=== PATIENT | male | born 1960 | race Caucasian/White ===

== ENCOUNTER 2016-08-22 06:02 | Outpatient (CLI) | payer MEDICARE ==
[~2016-08-22] VITALS: Ht 170.2 cm; Wt 80.3 kg
[~2016-08-22 06:02] MED LIST: ASPI-875 PO; BUTA-234 PO; DIPH25TA82 PO; HYDR-2890 PO; RABE20TA PO; TIZA4TAB55 PO
--- OUTSIDE RECORDS SUMMARY | 2016-08-22 06:05 | XMS REPORT ---
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
[2016-08-22] MEDS ORDERED: METO50TA2 PO (15:39)
[2016-08-22] MEDS ORDERED: TRIA1TAB3 PO (15:39)
[2016-08-22] MEDS ORDERED: CYCL10TA9 PO (15:39)
[2016-08-22] MEDS ORDERED: FAMO20TA3 PO (15:39)
== END 2016-08-22 15:42 ==
LOC: PREOP 06:02
PROVIDERS: ATTEND Surgery
DX: Z01.818 Encounter for other preprocedural examination (principal); R19.5 Other fecal abnormalities

== ENCOUNTER 2016-08-28 06:14 | Day surgery (SDC) | payer MEDICARE ==
[~2016-08-28] VITALS: Ht 170.2 cm; Wt 80.3 kg
[~2016-08-28 06:14] MED LIST changes: +CYCL10TA9 PO; +FAMO20TA3 PO; +METO50TA2 PO; +TRIA1TAB3 PO
[2016-08-28] MEDS ORDERED: NS IV 1000 ML 1,000 ML IV STA (07:05)
[2016-08-28] MEDS ORDERED: NS IV 1000 ML 1,000 ML ONE (07:07)
[2016-08-28] MEDS ORDERED: HURRICAINE EXT TUBE (BENZOCAINE) XX PRN (07:15)
[2016-08-28] MEDS ORDERED: PROPOFOL INJECTION 50 ML IV ONE (07:21)
[2016-08-28] MEDS ORDERED: MIDAZOLAM 2 MG/2 ML (VERSED) VIAL ONE (07:22)
[2016-08-28 07:29] VITALS: BP 140/95
--- NOTE | 2016-08-28 07:34 | Progress Note-Pre Operative ---
Pre-Operative Progress Note H&P Reviewed The H&P was reviewed, patient examined and no changes noted. Date H&P Reviewed: Aug 28, 2016 Time H&P Reviewed: 07:33 Pre-Operative Diagnosis: GERD, family history colon cancer, black stools MAIRA PHILIP DO Aug 28, 2016 7:34 am
[2016-08-28] MEDS ORDERED: HURRICAINE EXT TUBE (BENZOCAINE) ONE (07:36)
[2016-08-28 08:35] VITALS: BP 131/86
--- NOTE | 2016-08-28 08:39 | Progress Note-Post Operative ---
Post-Operative Progess Note Pre-Operative Diagnosis GERD, family history colon cancer, black stools Post-Operative Diagnosis small h/h, reflux esophagitis colon polyps Post-Op Procedure Note Date of Procedure: Aug 28, 2016 Name of Procedure: egd c biopsy ge junction colonoscopy with hot bx polypectomy x 5 Procedure Note/Findings see note Anesthesia Type per communications designer Estimated blood loss (mL): none Specimen(s) collected ge junction, cecal, descending, sigmoid, rectum x 2 MAIRA PHILIP DO Aug 28, 2016 8:39 am
[2016-08-28] MEDS ORDERED: OMEP20TA7 PO (08:41)
--- NOTE | 2016-08-28 08:41 | Discharge Inst-Simple/Standard ---
Discharge Inst-Standard Patient Instructions/Follow Up Plan of Care/Instructions/FU: 2 weeks Carol Repeat colonoscopy in 3 years. Activity as Tolerated: Yes Discharge Diet: Regular Diet MAIRA PHILIP DO Aug 28, 2016 8:41 am
[2016-08-28 09:00] VITALS: BP 143/90
[2016-08-28 09:19] VITALS: BP 143/90
--- NOTE | 2016-08-28 11:55 | PROCEDURE REPORT ---
PROCEDURE PHYSICIAN: MAIRA PHILIP DATE OF PROCEDURE: 08/28/2016 PREOPERATIVE DIAGNOSIS: 1. GERD. 2. Family history of colon cancer. 3. Black stools. POSTOPERATIVE DIAGNOSES: 1. Small hiatal hernia. 2. Reflux esophagitis. 3. Colon polyps. PROCEDURE: 1. EGD with biopsy at GE junction. 2. Colonoscopy with hot biopsy polypectomy x 5 SURGEON: Carol. ANESTHESIA: Per SENIOR JAVA SOFTWARE ENGINEER. COMPLICATIONS: None. INDICATIONS: The patient is a 56-year-old male with GERD, family history of colon cancer and black stools. He was recommended to have EGD and colonoscopy for further evaluation. He understands the risk and benefits of the procedure and wished to proceed with procedure. Consent was signed on the chart. PROCEDURE: The patient was taken to the endoscopy suite, placed in left lateral recumbent position. Timeout was performed. The scope was inserted in the mouth down the esophagus, stomach and into the duodenum without difficulty. There were no polyps, masses, ulcerations within the duodenum. The scope was then slowly retracted back to the stomach where it was further insufflated. There were no polyps, masses, ulcerations or erythematous changes. The scope was then retroflexed noting a small hiatal hernia. No other pathology noted. The scope was returned to its normal position slowly withdrawn. At the GE junction, there is some slight erythematous changes consistent with reflux esophagitis. Biopsy of GE junction was obtained. The scope was slowly retracted back until completely removed noting no other pathology. COLONOSCOPY: Digital rectal exam was then performed. There were no palpable polyps, masses or ulcerations. The scope inserted in the rectum and advanced all of the way to the cecum with minimal difficulty. Prep was adequate. The scope was then slowly retracted back. Within the cecum, a small polyp was present which hot biopsy polypectomy was performed. The scope was continued be slowly retracted back. There were no polyps, masses, ulcerations within the ascending colon, transverse colon. In the descending colon there is a small polyp, which hot biopsy polypectomy was performed. The scope was continued be slowly retracted back into the sigmoid colon; another polyp was present which hot biopsy polypectomy was performed. The scope was continued to be retracted back into the rectum, where there was 2 polyps, which hot biopsy polypectomy was performed. The scope was also retroflexed noting no further pathology. The scope was then returned to its normal position slowly withdrawn until completely removed. The patient tolerated the procedure well without any complications. He was taken to recovery in stable condition. RECOMMENDATIONS: The patient was started on omeprazole and he will need to follow-up 2 weeks to follow-up on pathology results. The patient will need repeat colonoscopy in 3 years unless he has any changes prior to that he should be reevaluated at that time. Should he have any problems prior to 3 years, he should be reevaluated at that time. Job ID: [id number] Dictated Date: 08/28/2016 08:45:10 Banquet Waiter/Waitress Date: 08/28/2016 11:46:43 / allegra
== END 2016-08-28 09:05 | disposition home or self-care (01) ==
LOC: ENDO 06:14
PROVIDERS: ATTEND Surgery
DX: D12.0 Benign neoplasm of cecum (principal); D12.4 Benign neoplasm of descending colon; K63.5 Polyp of colon; R19.5 Other fecal abnormalities; K21.0 Gastro-esophageal reflux disease with esophagitis; K44.9 Diaphragmatic hernia without obstruction or gangrene; Z80.0 Family history of malignant neoplasm of digestive organs
CPT/HCPCS: 88305

== ENCOUNTER → 2020-06-27 | Outpatient (CLI) | payer MEDICARE ==
[~2020-06-27] MED LIST changes: +METO50TA15 PO; -METO50TA2 PO; +OMEP20TA7 PO
--- NOTE | 2020-06-27 13:53 | Diagnostic Imaging Report ---
PROCEDURE: MRI lumbar spine. TECHNIQUE: Multiplanar, multisequence MRI of the lumbar spine was performed without contrast. INDICATION: Low back pain and left leg numbness. COMPARISON: No prior studies are available for comparison. FINDINGS: The curvature of the lumbar spine is normal. There is grade 1 spondylolisthesis of L5 on S1. There appear to be bilateral pars defects at L5-S1. The vertebral body heights are maintained. No acute compression fracture or geographic marrow lesion is seen. There is some mild generalized disc desiccation, compatible with degenerative disc disease; however, there does appear to be fairly normal disc height. The conus is unremarkable at the L1 level. T12-L1: The central canal is widely patent. The neuroforamina are widely patent. L1-L2: The central canal is patent. The neuroforamina are patent. L2-L3: There is broad-based annular bulging producing mild flattening of the ventral thecal sac. The central canal remains patent. There is significant narrowing of the lateral recesses bilaterally. There is also moderate bilateral neuroforaminal narrowing. L3-L4: The central canal is widely patent. There is some mild to moderate narrowing of the lateral recesses bilaterally. There is mild bilateral neuroforaminal narrowing. L4-L5: The central canal is widely patent. There is mild bilateral neuroforaminal narrowing. The lateral recesses are patent. L5-S1: The central canal is widely patent. There is moderate bilateral neuroforaminal narrowing. The paraspinous tissues demonstrate a probable small cyst in the left kidney. IMPRESSION: Generalized lumbar spondylosis with multilevel lateral recess and neuroforaminal narrowing described level by level above. No central canal stenosis is identified. No acute compression fracture is identified. Dictated by: Dictated on workstation # [id number]
== END ==
LOC: RAD 14:00
PROVIDERS: ATTEND Physician Assistant
DX: M47.816 Spondylosis without myelopathy or radiculopathy, lumbar region (principal); M51.36 Other intervertebral disc degeneration, lumbar region; M48.061 Spinal stenosis, lumbar region without neurogenic claudication; M48.07 Spinal stenosis, lumbosacral region
CPT/HCPCS: 72148

== ENCOUNTER 2020-07-19 17:47 | Emergency (ER) | payer MEDICARE ==
[~2020-07-19] VITALS: Ht 172.7 cm; Wt 81.6 kg
[2020-07-19 18:52] LABS: BASOPHILS # (AUTO) 0.1 10^3/uL (0.0-0.1); BASOPHILS % (AUTO) 1 % (0-10); EOSINOPHILS # (AUTO) 0.2 10^3/uL (0.0-0.3); EOSINOPHILS % (AUTO) 2 % (0-10); HEMATOCRIT 50 % (40-54); HEMOGLOBIN 16.8 g/dL (13.3-17.7); LYMPHOCYTES # (AUTO) 3.1 10^3/uL (1.0-4.0); LYMPHOCYTES % (AUTO) 34 % (12-44); MEAN CORPUSCULAR HEMOGLOBIN 33 pg (25-34); MEAN CORPUSCULAR HGB CONC 34 g/dL (32-36); MEAN CORPUSCULAR VOLUME 98 fL (80-99); MEAN PLATELET VOLUME 9.1 fL (9.0-12.2); MONOCYTES # (AUTO) 0.8 10^3/uL (0.0-1.0); MONOCYTES % (AUTO) 8 % (0-12); NEUTROPHILS % (AUTO) 55 % (42-75); PLATELET COUNT 340 10^3/uL (130-400); WHITE BLOOD COUNT 9.2 10^3/uL (4.3-11.0)
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
[2020-07-19 19:03] LABS: ALBUMIN 4.3 GM/DL (3.2-4.5); POTASSIUM 4.4 MMOL/L (3.6-5.0); PROTHROMBIN TIME PATIENT 13.1 SEC (12.2-14.7)
[2020-07-19 19:05] LABS: TOTAL PROTEIN 8.3 GM/DL (6.4-8.2)
[2020-07-19 19:07] LABS: BILIRUBIN,TOTAL 0.6 MG/DL (0.1-1.0)
[2020-07-19 19:09] LABS: CREATININE SERUM 1.22 MG/DL (0.60-1.30)
--- NOTE | 2020-07-19 19:24 | Diagnostic Imaging Report ---
INDICATION: Left foot pain and discoloration AP, oblique, and lateral views of the left foot are obtained. No fracture or acute bony abnormality seen. There is no destructive bony lesion. There is mild degenerative change of 1st MTP joint. There is no acute appearing bony abnormality IMPRESSION: Mild degenerative findings of the 1st MTP joint. No acute bony abnormality in the left foot. Dictated by: Dictated on workstation # [id number]
--- NOTE | 2020-07-19 20:47 | Diagnostic Imaging Report ---
INDICATION: Cold left lower extremity and discoloration of big toe. Left leg arterial Doppler study performed in a routine fashion with color flow Doppler and waveform analysis. There is abnormal monophasic flow throughout the left lower extremity, implying inflow disease above the levels imaged. Flow is relatively slow but is present throughout the common femoral artery, profunda femoris artery, and SFA and popliteal artery. There was slow flow in the posterior tibial artery. There is no flow visualized in the left dorsalis pedis. There is incidental 3.7 x 3.6 x 1.2 cm Ochoa's cyst in the left popliteal fossa. IMPRESSION: There is relatively slow abnormal monophasic flow throughout the left lower extremity, implying inflow disease above the inguinal ligament, likely at the iliac level. There is no flow visualized in the dorsalis pedis. There is an incidental Ochoa's cyst in the left popliteal fossa. Dictated by: Dictated on workstation # [id number]
[2020-07-19] MEDS ORDERED: HEParin DRIP 25000 UNIT/500ML 500 ML IV ONE (21:30)
[2020-07-19] MEDS ORDERED: HEParin 1000 UNIT/ML (10ML VIAL) FOR BOLUS IV ONE (21:30)
[2020-07-19 23:10] VITALS: BP 128/92
== END 2020-07-19 23:10 | disposition short-term general hospital (02) ==
LOC: EDUNIT# 17:47 → ER 17:49
DX: I77.1 Stricture of artery (principal); I10 Essential (primary) hypertension; I25.10 Atherosclerotic heart disease of native coronary artery without angina pectoris; G43.909 Migraine, unspecified, not intractable, without status migrainosus; K21.9 Gastro-esophageal reflux disease without esophagitis; G89.29 Other chronic pain; F17.210 Nicotine dependence, cigarettes, uncomplicated; Z95.5 Presence of coronary angioplasty implant and graft; Z80.8 Family history of malignant neoplasm of other organs or systems; Z88.6 Allergy status to analgesic agent; Z88.8 Allergy status to other drugs, medicaments and biological substances; Z79.82 Long term (current) use of aspirin; Z79.891 Long term (current) use of opiate analgesic
CPT/HCPCS: 36415; 73630; 80053; 85025; 85610; 85730; 93005; 93926

== ENCOUNTER → 2021-01-10 | Outpatient (CLI) | payer MEDICARE ==
[~2021-01-10] VITALS: Ht 175.3 cm; Wt 84.1 kg
== END | disposition home or self-care (01) ==
LOC: PREOP 06:47
PROVIDERS: ATTEND Surgery
DX: Z01.818 Encounter for other preprocedural examination (principal)

== ENCOUNTER 2021-05-02 06:18 | Outpatient (CLI) | payer MEDICARE ==
[~2021-05-02] VITALS: Ht 175.3 cm; Wt 82.1 kg
[2021-05-02] MEDS ORDERED: PRAZ2CAP2 PO (15:04)
[2021-05-02] MEDS ORDERED: FLUO10TA PO (15:04)
[2021-05-02] MEDS ORDERED: BREX0.5T PO (15:04)
[2021-05-02] MEDS ORDERED: METO1TAB10 PO (15:04)
[2021-05-02] MEDS ORDERED: DIPH25CA48 PO (15:04)
[2021-05-02] MEDS ORDERED: ASPI-999 PO (15:04)
[2021-05-02] MEDS ORDERED: CLOP75TA28 PO (15:04)
[2021-05-02] MEDS ORDERED: OMG1KC PO (15:04)
== END 2021-05-02 15:23 | disposition home or self-care (01) ==
LOC: PREOP 06:18
PROVIDERS: ATTEND Surgery
DX: Z01.818 Encounter for other preprocedural examination (principal)

== ENCOUNTER 2021-05-09 10:51 | Day surgery (SDC) | payer MEDICARE ==
[~2021-05-09] VITALS: Ht 175.2 cm; Wt 82.1 kg
[~2021-05-09 10:51] MED LIST changes: +ASPI-999 PO; +BREX0.5T PO; +CLOP75TA28 PO; +DIPH25CA48 PO; +FLUO10TA PO; +METO1TAB10 PO; +OMG1KC PO; +PRAZ2CAP2 PO
[2021-05-09] MEDS ORDERED: LACTATED RINGERS 1,000 ML IV STA (11:07)
[2021-05-09 11:24] VITALS: BP 122/81
[2021-05-09] MEDS ORDERED: PROPOFOL INJECTION 50 ML IV ONE (11:40)
--- NOTE | 2021-05-09 11:45 | Progress Note-Pre Operative ---
Pre-Operative Progress Note H&P Reviewed The H&P was reviewed, patient examined and no changes noted. Date Seen by Provider: May 09, 2021 Time Seen by Provider: 11:45 Date H&P Reviewed: May 09, 2021 Time H&P Reviewed: 11:45 Pre-Operative Diagnosis: history of colon polyps MAIRA PHILIP DO May 09, 2021 11:45
[2021-05-09 12:43] VITALS: BP 99/61
[2021-05-09 12:45] VITALS: BP 122/55
--- NOTE | 2021-05-09 12:49 | Progress Note-Post Operative ---
Post-Operative Progess Note Surgeon (s)/Survey Party Chief (s) Surgeon MAIRA PHILIP DO Survey Party Chief: na Pre-Operative Diagnosis history of colon polyps Post-Operative Diagnosis Cecal polyp x1, ascending colon polyp x3, transverse colon polyp x1, sigmoid polyp x1, rectal polyp x2 Procedure & Operative Findings Date of Procedure 05/09/21 Procedure Performed/Findings Colonoscopy with hot bx polypectomy x4, snare polypectomyt x4, fulguration x 5 Anesthesia Type per MEDICINE AIDE Estimated Blood Loss Estimated blood loss (mL): none Specimens/Packing Specimens Removed Cecal polyp x1, ascending colon polyp x3, transverse colon polyp x1, sigmoid polyp x1, rectal polyp x2 MAIRA PHILIP DO May 09, 2021 12:49
[2021-05-09 12:50] VITALS: BP 119/56
[2021-05-09 12:55] VITALS: BP 119/56
--- NOTE | 2021-05-09 13:04 | Discharge Inst-Simple/Standard ---
Discharge Inst-Standard Patient Instructions/Follow Up Plan of Care/Instructions/FU: 2 weeks Carol Activity as Tolerated: Yes Discharge Diet: Regular Diet MAIRA PHILIP DO May 09, 2021 13:04
[2021-05-09 13:35] VITALS: BP 132/58
--- NOTE | 2021-05-09 19:46 | OPERATIVE REPORT ---
DATE OF SERVICE: 05/09/2021 PREOPERATIVE DIAGNOSIS: History of colon polyps. POSTOPERATIVE DIAGNOSES: Cecal polyp x1, ascending colon polyp x3, transverse colon polyp x1, sigmoid polyp x1, rectal polyp x2. PROCEDURE: Colonoscopy with hot biopsy polypectomy x4 and snare polypectomy x4 and fulguration x5. SURGEON: Maira Medina DO ANESTHESIA: Per DAY CARE CENTER DIRECTOR. ESTIMATED BLOOD LOSS: None. COMPLICATIONS: None. INDICATIONS: The patient is a 61-year-old male with history of colon polyps. He understands risks and benefits of procedure and wished to proceed. Consent was signed in the chart. DESCRIPTION OF PROCEDURE: The patient was taken to the endoscopy suite, placed in left lateral recumbent position. Timeout was performed. Scope was inserted in the rectum and advanced all the way to cecum with minimal difficulty. Prep was adequate with irrigation and suction. Scope was then slowly retracted back in the cecum, a small polyp was present, which snare polypectomy was performed. Scope was then continuously retracted back in the ascending colon, which polyps were present, which snare polypectomies were performed. Scope was then continuously retracted back into the transverse colon where another polyp was present, which hot biopsy polypectomy was performed. Scope was continuously retracted back. No other polyps, masses or ulcerations in the transverse, descending colon. In sigmoid colon, another polyp was present, which hot biopsy polypectomy was performed. Scope was then continuously retracted back in the rectum where another polyp was present, which hot biopsy polypectomy was performed. A second rectal polyp was large, was present, which hot biopsy polypectomy was performed. There were 5 small polyps in the rectosigmoid area that were fulgurated. Scope was retroflexed noting no other pathology. Scope was returned to its normal position, slowly withdrawn until completely removed. The patient tolerated procedure well without any complications, taken to recovery room in stable condition. RECOMMENDATIONS: The patient will need repeat colonoscopy in one year. Any issues before that be seen at that time. The patient will follow up in office in two weeks to discuss pathology results. Job ID: [id number] DocumentID: [id number] Dictated Date: 05/09/2021 13:07:11 Box Icer Date: 05/09/2021 19:45:33 Dictated By: MAIRA MEDINA DO
--- NOTE | 2021-05-10 10:00 | Anesthesia-General Post-Op ---
MAC Patient Condition Mental Status/LOC: Same as Preop Cardiovascular: Satisfactory Nausea/Vomiting: Absent Respiratory: Satisfactory Pain: Controlled Complications: Absent Post Op Complications Complications None Follow Up Care/Instructions Patient Instructions None needed. Anesthesiology Discharge Order Discharge Order Patient is doing well, no complaints, stable vital signs, no apparent adverse anesthesia problems. No complications reported per nursing. NORMA LANGLEY CRNA May 10, 2021 10:00
== END 2021-05-09 13:40 | disposition home or self-care (01) ==
LOC: ENDO 10:51
PROVIDERS: ATTEND Surgery
DX: D12.0 Benign neoplasm of cecum (principal); D12.2 Benign neoplasm of ascending colon; D12.3 Benign neoplasm of transverse colon; D12.5 Benign neoplasm of sigmoid colon; K62.1 Rectal polyp; F17.210 Nicotine dependence, cigarettes, uncomplicated; K21.9 Gastro-esophageal reflux disease without esophagitis; I25.2 Old myocardial infarction; I10 Essential (primary) hypertension; J44.9 Chronic obstructive pulmonary disease, unspecified; I25.10 Atherosclerotic heart disease of native coronary artery without angina pectoris; Z79.82 Long term (current) use of aspirin; Z79.02 Long term (current) use of antithrombotics/antiplatelets; Z79.899 Other long term (current) drug therapy; Z83.3 Family history of diabetes mellitus; Z80.8 Family history of malignant neoplasm of other organs or systems; Z80.3 Family history of malignant neoplasm of breast

== ENCOUNTER 2022-02-24 22:14 | Emergency (ER) | payer MEDICARE ==
[~2022-02-24] VITALS: Ht 175.3 cm; Wt 82.1 kg
[~2022-02-24 22:14] MED LIST changes: +CYCL10TA25 PO; -CYCL10TA9 PO; +OMEP20TA56 PO; -OMEP20TA7 PO
--- NOTE | 2022-02-24 23:21 | ED General ---
General Chief Complaint: COVID19 Suspect/Confirmed Stated Complaint: SOA,CHILLS,COUGHING UP MUCUS Nursing Triage Note: Pt ambulates to ED 9 with c/o coughing up mucous for 3 days. Reports feeling chills and weakness, nausea/vomiting/diarrhea yesterday. Ibuprofen/Tylenol helps minimally, DayQuill and NyQuill work better. Pt also reports mucous "coming out of eyes". Describes difficulty in getting all secretions up, states he "gets sick" when he takes Mucinex. Allergies and Home Medications Allergies Coded Allergies: NSAIDS (Non-Steroidal Anti-Inflamma (Verified Allergy, Severe, ANAPHYLAXIS, 05/09/21) iodine (Verified Allergy, Severe, ANAPHYLAXIS, 05/09/21) Patient Home Medication List Aspirin (Aspirin) 81 Mg Tab.chew, 81 MG PO DAILY, (Reported) Entered as Reported by: CHAKA CANADA on 05/02/21 1504 Brexpiprazole (Rexulti) 0.5 Mg Tablet, 0.5 MG PO DAILY, (Reported) Entered as Reported by: CHAKA CANADA on 05/02/21 1504 Clopidogrel Bisulfate (Clopidogrel) 75 Mg Tablet, 75 MG PO DAILY, (Reported) Entered as Reported by: CHAKA CANADA on 05/02/21 1504 Cyclobenzaprine HCl (Cyclobenzaprine HCl) 10 Mg Tablet, 10 MG PO DAILY, (Reported) Entered as Reported by: GOGO ALMONTE on 08/22/16 1539 Diphenhydramine HCl (Diphenhydramine HCl) 25 Mg Capsule, 25 MG PO PRN, (Reported) Entered as Reported by: CHAKA CANADA on 05/02/21 1504 Fluoxetine HCl (Fluoxetine HCl) 10 Mg Tablet, 10 MG PO DAILY, (Reported) Entered as Reported by: CHAKA CANADA on 05/02/21 1504 Metoprolol/Hydrochlorothiazide (Metoprolol-Hctz 50-25 mg Tab) 1 Each Tablet, 2 EACH PO DAILY, (Reported) Entered as Reported by: CHAKA CANADA on 05/02/21 1504 [place] 3 Polyunsat Fatty Acids (Fish Oil 1,000 mg Capsule) 1,000 Mg Cap, 1,000 MG PO DAILY, (Reported) Entered as Reported by: CHAKA CANADA on 05/02/21 1504 Omeprazole (Omeprazole) 20 Mg Tablet.dr, 20 MG PO DAILY Prescribed by: MAIRA PHILIP on 08/28/16 0841 Prazosin HCl (Prazosin HCl) 2 Mg Capsule, 2 MG PO TID, (Reported) Entered as Reported by: CHAKA CANADA on 05/02/21 1504 Past Yfrrgzy-Jurfpy-Mcrgzy Hx Patient Social History Tobacco Use?: Yes Tobacco type used: Cigarettes Smoking Status: Current Everyday Smoker Use of E-Cig and/or Vaping dev: No Substance use?: No Alcohol Use?: No Pt feels they are or have been: No Immunizations Up To Date Tetanus Booster (TDap): Unknown First/Initial COVID19 Vaccinat: NO Second COVID19 Vaccination Cedrick: NO Third COVID19 Vaccination Date: NO Seasonal Allergies Seasonal Allergies: Yes Past Medical History Surgeries: Yes (left knee x2, sinus sx, CARDIAC CATH-STENT X 1;EGD/COLONOSCOPY/POLYPECTOMY) Cardiac, Coronary Stent, Orthopedic Respiratory: Yes COPD Cardiac: Yes (NSTEMI 02/2014-CARDIAC CATH--STENT X 1) Coronary Artery Disease, Heart Attack, High Cholesterol, Hypertension Neurological: Yes Headaches /Migraines Reproductive Disorders: No Genitourinary: No Gastrointestinal: Yes Gastroesophageal Reflux, Chronic Constipation, Chronic Diarrhea, Polyps, Esophagitis, Hiatal Hernia Musculoskeletal: Yes (KNEE SCOPES; ROTATOR CUFF INJURY) Degenerate Disk Disease, Arthritis, Chronic Back Pain Endocrine: No HEENT: No Loss of Vision: Denies Cancer: No Psychosocial: No Integumentary: No Blood Disorders: No Family Medical History Cancer of mouth GRANDPARENT AND UNCLE, Onset:Unknown Myocardial infarction GRANDPARENT AND UNCLE SOCIAL HISTORY: -ETOH--DENIES USE -DRUGS--DENIES USE -SMOKED 1 PPD X 24 YEARS, NOW ONLY "OCCASIONALLY" SMOKES. PAST SURGICAL HISTORY: 08/2016--EGD/COLONOSCOPY/POLYPECTOMY X 5 -LEFT KNEE SCOPE X 2 -SINUS SURGERY -CARDIAC CATH--STENT X 1 Physical Exam Vital Signs Vital Signs - First Documented Capillary Refill : Height, Weight, BMI Height: 5'7.00" Weight: 177lbs. 0.0oz. 80.258741lc; 26.00 BMI Method:Stated Progress/Results/Core Measures Suspected Sepsis SIRS Temperature: Pulse: 64 Respiratory Rate: 20 Blood Pressure 135 /94 Mean: 108 Results/Orders Lab Results Laboratory Tests Test 02/24/22 22:35 Range/Units Influenza Type A (RT-PCR) Not Detected Not Detecte Influenza Type B (RT-PCR) Not Detected Not Detecte SARS-CoV-2 RNA (RT-PCR) Detected H Not Detecte My Orders Orders - NIKKI LUNA DO Covid 19 Inhouse Test (02/24/22 22:32) Influenza A And B By Pcr (02/24/22 22:32) Isolation Central Supply Req (02/24/22 22:32) Vital Signs/I&O 02/24/22 02/24/22 22:28 22:28 Temp 36.5 Pulse 64 Resp 20 B/P (MAP) 135/94 (108) Pulse Ox 97 O2 Delivery Room Air Room Air Capillary Refill : Blood Pressure Mean: 108 Progress Note : Progress Note PLACED IN ISOLATION ROOM PPE WORN AT ALL TIMES COVID AND FLU TESTS DONE NO COUGH NO DYSPNEA NO HYPOXIA NO FEVER NO GI SYMPTOMS NO ABNORMAL VITALS DURING ER STAY DISCUSSED PAXLOVID TREATMENT BASED ON HIS CO-MORBIDITIES, AND PT WISHES TO PURSUE THIS TREATMENT Departure Impression Primary Impression: COVID-19 virus infection Disposition: 01 HOME, SELF-CARE Condition: Stable Departure-Patient Inst. Decision time for Depature: 23:15 Referrals: NEENA RINCON DO (PCP/Family) Primary Care Physician Patient Instructions: COVID-19 Home Care/Discharge, Preventing the Spread of an Infectious Disease, Nirmatrelvir and Ritonavir FDA Fact Sheet Add. Discharge Instructions: TAKE PAXLOVID PRESCRIBED LOTS OF CLEAR LIQUIDS TYLENOL AND MOTRIN NEEDED FOR PAIN OR FEVER OVER THE COUNTER MEDICATIONS NEEDED FOR COUGH AND CONGESTION FOLLOW UP WITH YOUR DR THIS WEEK FOR RECHECK--CALL ON SATURDAY TO SCHEDULE APPOINTMENT RETURN TO ER IF WORSE QUARANTINE FOR 10 DAYS FROM ONSET OF SYMPTOMS All discharge instructions reviewed with patient and/or family. Voiced unde rstanding. NIKKI LUNA DO Feb 24, 2022 23:21
[2022-02-24] MEDS ORDERED: RX-NIRMATRELVIR/RITONAVIR (PAXLOVID) #30 TABS PO SCH (23:30)
[2022-02-24 23:45] VITALS: BP 140/89
== END 2022-02-24 23:45 | disposition home or self-care (01) ==
LOC: EDUNIT# 22:14 → ER 22:17
DX: U07.1 COVID-19 (principal); F17.210 Nicotine dependence, cigarettes, uncomplicated; Z28.310 Unvaccinated for COVID-19
CPT/HCPCS: 87636; 99283

== ENCOUNTER 2023-02-27 10:55 | Outpatient (RCR) | payer MEDICARE ==
[~2023-02-27 10:55] MED LIST changes: +DIPH-1122 PO; -DIPH25CA48 PO; +FAMO-356 PO; -FAMO20TA3 PO; -FLUO10TA PO; +FLUO10TA28 PO
== END 2023-03-07 | disposition home or self-care (01) ==
LOC: CR 10:55
PROVIDERS: ATTEND Internal Medicine Cardiovascular Disease
DX: Z29.8 Encounter for other specified prophylactic measures (principal); I10 Essential (primary) hypertension; I25.10 Atherosclerotic heart disease of native coronary artery without angina pectoris; Z95.5 Presence of coronary angioplasty implant and graft
CPT/HCPCS: 93798

== ENCOUNTER 2023-03-13 11:19 | Outpatient (RCR) | payer MEDICARE | END 2023-04-06 | disposition home or self-care (01) | LOC: CR 11:19 | PROVIDERS: ATTEND Internal Medicine Cardiovascular Disease | DX: Z29.8 Encounter for other specified prophylactic measures (principal); I10 Essential (primary) hypertension; I25.10 Atherosclerotic heart disease of native coronary artery without angina pectoris; Z95.5 Presence of coronary angioplasty implant and graft | CPT/HCPCS: 93798 ==